=== PATIENT | female | born 1985 | race Caucasian/White ===

== ENCOUNTER 2017-04-11 15:56 | Emergency (ER) | payer BC, MEDICAID, OTHER ==
[2017-04-11 16:03] VITALS: RESP 16
[2017-04-11] MEDS ORDERED: ONDANSETRON 4 MG/2 ML VIAL IVP ONE (16:20)
[2017-04-11] MEDS ORDERED: NS 1,000 ML IV ONE ×2 (16:20)
--- NOTE | 2017-04-11 16:24 | EDPHY ---
H & P Time Seen by Provider: 04/11/17 16:06 HPI/ROS: CHIEF COMPLAINT: Fever and diarrhea HISTORY OF PRESENT ILLNESS: This 31-year-old woman had a history of Clostridium difficile in 2013 when she had a foot infection after a horse stepped on her. She has been in [place] until last Saturday taking care of animals including courses pigs dogs cats and birds. She did get a cat scratch last week. She started getting intermittent diarrhea about 3 weeks ago and then started getting a fever and chills for the past 2 days. She had nausea vomiting and abdominal pain today. Diarrhea moderate and fever is intermittent. Not associated with blood or melena. Occasional coughing, nonproductive. REVIEW OF SYSTEMS: Eye: no change in vision ENT: no sore throat Cardiac: no chest pain or syncope Pulmonary: Occasional cough but not feeling short of breath for the last week. Abdomen: HPI Musculoskeletal: no back pain or neck stiffness Skin: no rash Neuro: no headache Constitutional: HPI : no urinary symptoms A comprehensive 10 point review of systems is otherwise negative aside from elements mentioned in the history of present illness. PAST MEDICAL HISTORY: Includes Clostridium difficile and depression and attention deficit hyperactivity disorder Social history: No IV drugs, animal exposure as outlined in the HPI. General Appearance: Alert and conversant, cooperative. Eyes: No scleral icterus. ENT, Mouth: Dry mucous membranes. Respiratory: Normal respiratory effort, breath sounds equal, lungs are clear to auscultation. Cardiovascular: Regular rate and rhythm. Gastrointestinal: Abdomen is soft and non tender. Neurological: Alert and oriented x3. Normally conversant. Face symmetric, normal movement and sensation in all extremities. Skin: Warm and dry, no rashes. Musculoskeletal: No peripheral edema and no joint swelling. Psychiatric: Not agitated. Emergency Department course/MDM: Normal saline 2 L for nausea and vomiting and Zofran 4 mg IV. Chest x-ray for fever and cough. Stool sample for history of Clostridium difficile with recurrent diarrhea and fever. 1725: Discussed with Dr. Kong including but not limited to bird exposure and history of Clostridium difficile, who recommends treating the patient with Levaquin. Discussed including black box warning with the patient and consented. 750 mg IV here. 2242: GI pathogen panel negative. Smoking Status: Never smoked Constitutional: Initial Vital Signs Temperature (C) 37.3 C 04/11/17 15:59 Heart Rate 112 H 04/11/17 15:59 Respiratory Rate 16 04/11/17 15:59 Blood Pressure 113/71 04/11/17 15:59 O2 Sat (%) 95 04/11/17 15:59 O2 Delivery Mode Room Air Allergies/Adverse Reactions: No Known Allergies Allergy (Unverified 04/11/17 15:58) Home Medications: Medication Instructions Recorded Adderall 10 mg Tablet 04/11/17 levOFLOXACIN [Levaquin] 750 mg PO DAILY #5 tab 04/11/17 Medical Decision Making - Diagnostics Imaging Results: Imaging Impressions Chest X-Ray 04/11/17 16:21 Impression: Right posterior medial basilar pneumonia. Clinical correlation and follow-up to assure resolution are recommended. Chest x-ray shows right sided pneumonia. Imaging: I viewed and interpreted images myself Differential Diagnosis: Differential for fever and diarrhea considered including but not limited to Clostridium difficile, other infectious diarrhea, GI bleed, appendicitis, UTI. - Data Points Laboratory Results: Laboratory Results 04/11/17 16:09 04/11/17 16:09 04/11/17 04/11/17 04/11/17 16:09 16:09 16:09 WBC RBC Hgb Hct MCV MCH MCHC RDW Plt Count MPV Neut % (Auto) Lymph % (Auto) [place] % (Auto) Eos % (Auto) Baso % (Auto) Nucleat RBC Rel Count Absolute Neuts (auto) Absolute Lymphs (auto) Absolute Monos (auto) Absolute Eos (auto) Absolute Basos (auto) Absolute Nucleated RBC Immature Gran % Immature Gran # Sodium 136 mEq/L mEq/L (134-144) Potassium 3.4 mEq/L L mEq/L (3.5-5.2) Chloride 102 mEq/L mEq/L (97-110) Carbon Dioxide 24 mEq/l mEq/l (22-31) Anion Gap 10 mEq/L mEq/L (8-16) BUN 12 mg/dL mg/dL (7-23) Creatinine 0.8 mg/dL mg/dL (0.6-1.0) Estimated GFR > 60 Glucose 102 mg/dL H mg/dL (70-100) Calcium 8.7 mg/dL mg/dL (8.5-10.4) Beta HCG, Qual NEGATIVE Urine RBC 3-5 /hpf H /hpf (0-3) Urine WBC 3-5 /hpf H /hpf (0-3) Ur Epithelial Cells TRACE /lpf /lpf (NONE-1+) Urine Bacteria 2+ /hpf H /hpf (NONE SEEN) 04/11/17 16:09 WBC 8.27 10^3/uL 10^3/uL (3.80-9.50) RBC 4.72 10^6/uL 10^6/uL (4.18-5.33) Hgb 12.4 g/dL L g/dL (12.6-16.3) Hct 38.3 % % (38.0-47.0) MCV 81.1 fL L fL (81.5-99.8) MCH 26.3 pg L pg (27.9-34.1) MCHC 32.4 g/dL g/dL (32.4-36.7) RDW 13.5 % % (11.5-15.2) Plt Count 206 10^3/uL 10^3/uL (150-400) MPV 9.0 fL fL (8.7-11.7) Neut % (Auto) 80.9 % H % (39.3-74.2) Lymph % (Auto) 10.6 % L % (15.0-45.0) [place] % (Auto) 8.0 % % (4.5-13.0) Eos % (Auto) 0.0 % L % (0.6-7.6) Baso % (Auto) 0.1 % L % (0.3-1.7) Nucleat RBC Rel Count 0.0 % % (0.0-0.2) Absolute Neuts (auto) 6.69 10^3/uL H 10^3/uL (1.70-6.50) Absolute Lymphs (auto) 0.88 10^3/uL L 10^3/uL (1.00-3.00) Absolute Monos (auto) 0.66 10^3/uL 10^3/uL (0.30-0.80) Absolute Eos (auto) 0.00 10^3/uL L 10^3/uL (0.03-0.40) Absolute Basos (auto) 0.01 10^3/uL L 10^3/uL (0.02-0.10) Absolute Nucleated RBC 0.00 10^3/uL 10^3/uL (0-0.01) Immature Gran % 0.4 % % (0.0-1.1) Immature Gran # 0.03 10^3/uL 10^3/uL (0.00-0.10) Sodium Potassium Chloride Carbon Dioxide Anion Gap BUN Creatinine Estimated GFR Glucose Calcium Beta HCG, Qual Urine RBC Urine WBC Ur Epithelial Cells Urine Bacteria Microbiology Results: MICROBIOLOGY 04/11/17 16:55 Stool Gastrointestinal Tract Panel (PCR) - Final No Organism Detected Medications Given: Discontinued Medications Sodium Chloride (Ns) 1,000 mls @ 0 mls/hr IV ONCE ONE PRN Reason: Wide Open Stop: 04/11/17 16:21 Last Admin: 04/11/17 16:55 Dose: 1,000 mls Sodium Chloride (Ns) 1,000 mls @ 0 mls/hr IV ONCE ONE PRN Reason: Wide Open Stop: 04/11/17 16:21 Last Admin: 04/11/17 17:00 Dose: 1,000 mls Levofloxacin/Dextrose (Levaquin 750 Mg (Premix)) 150 mls @ 100 mls/hr IV EDNOW ONE PRN Reason: Protocol Stop: 04/11/17 18:54 Last Admin: 04/11/17 17:45 Dose: 150 mls Ondansetron HCl (Zofran) 4 mg IVP EDNOW ONE Stop: 04/11/17 16:21 Last Admin: 04/11/17 16:35 Dose: 4 mg Departure - Departure Disposition: Home, Routine, Self-Care Clinical Impression: Pneumonia Qualifiers: Pneumonia type: due to unspecified organism Laterality: right Lung location: lower lobe of lung Qualified Code(s): J18.1 - Lobar pneumonia, unspecified organism Condition: Good Instructions: Bacterial Pneumonia (ED) Additional Instructions: Call tomorrow [phone] for stool sample study results. Referrals: MARIA INES MAHMOOD [Other] - As per Instructions Bayron Kong MD [Medical Doctor] - 1 day, if not improved (Dr. Kong is the ID specialist we consulted from the ED.) Prescriptions: levOFLOXACIN [Levaquin] 750 mg PO DAILY #5 tab
[2017-04-11 16:27] LABS: % IMMATURE GRANULYOCYTES 0.4 % (0.0-1.1); ABSOLUTE IMMATURE GRANULOCYTES 0.03 10^3/uL (0.00-0.10); ADD DIFF? NO; ADD MORPH? NO; ADD SCAN? NO; ATYPICAL LYMPHOCYTE FLAG 0 (0-99); FRAGMENT RBC FLAG 0 (0-99); HEMATOCRIT 38.3 % (38.0-47.0); HEMOGLOBIN 12.4 g/dL (12.6-16.3); LEFT SHIFT FLG 50 (0-99); LIPEMIA HEMOLYSIS FLAG 80 (0-99); MEAN CELL HEMOGLOBIN 26.3 pg (27.9-34.1); MEAN CELL HEMOGLOBIN CONCENTR. 32.4 g/dL (32.4-36.7); MEAN CELL VOLUME 81.1 fL (81.5-99.8); PLATELET CLUMPS FLAG 0 (0-99); PLATELET COUNT 206 10^3/uL (150-400); RED BLOOD CELL COUNT 4.72 10^6/uL (4.18-5.33); RED CELL DISTRIBUTION WIDTH 13.5 % (11.5-15.2)
[2017-04-11 16:35] LABS: BACTERIA 2+ /hpf (NONE SEEN)
[2017-04-11 16:41] LABS: ANION GAP 10 mEq/L (8-16); CALCIUM 8.7 mg/dL (8.5-10.4); CARBON DIOXIDE 24 mEq/l (22-31); CHLORIDE 102 mEq/L (97-110); CREATININE 0.8 mg/dL (0.6-1.0); GLOMERULAR FILTRATION RATE > 60; GLUCOSE 102 mg/dL (70-100); POTASSIUM 3.4 mEq/L (3.5-5.2); SODIUM 136 mEq/L (134-144)
[2017-04-11 19:25] VITALS: BP 115/81; PULSE 98; TEMP 99.3; O2SAT 93
== END 2017-04-11 19:25 | disposition home or self-care (01) ==
DX: J18.9 Pneumonia, unspecified organism (principal)
CPT/HCPCS: 96365; J1956; J2405